=== PATIENT | female | born 1965 | race Caucasian/White ===

== ENCOUNTER 2019-03-07 09:31 | Emergency (ER) | payer BC ==
--- NOTE | 2019-03-07 10:17 | EDM.PDOC ---
ED HPI GENERAL MEDICAL PROBLEM - General Chief Complaint: Respiratory Problem Stated Complaint: TROUBLE BREATHING Time Seen by Provider: 03/07/19 10:00 Source of Information: Reports: Patient, Family History Limitations: Reports: No Limitations - History of Present Illness INITIAL COMMENTS - FREE TEXT/NARRATIVE: Ongoing cough for approximately 1/2-2 weeks patient states that it is a dry, hacking cough seems to get mildly worse in the a.m. symptom occur little bit more short of breath but then goes away since she had same signs and Symptoms Approximately Year Ago Was Diagnosed Bronchitis maybe it's kind of the same she smokes approximately one pack per day 30 years she denies any OTC treatment as of yet she denies any fever questionable chills secondary to has been going through menopause no nausea vomiting no chest pain no dyspnea on exertion no orthopnea no PND no lightheaded dizziness no tachycardia states she has been doing her normal routine with no issues she denies any swelling to the hands of the feet she does not know her family history secondary not raised by her mother or father Onset: Gradual Duration: Week(s): Improves with: Reports: None Worsens with: Reports: None. Denies: Breathing, Immobilization, Medication, Rest Associated Symptoms: Reports: Cough, Shortness of Breath. Denies: Chest Pain, Diaphoresis, Fever/Chills, Loss of Appetite, Nausea/Vomiting, Syncope - Related Data Allergies Allergy/AdvReac Type Severity Reaction Status Date / Time Penicillins Allergy Rash Verified 03/07/19 09:42 Home Meds: Home Meds . [No Known Home Meds] 03/07/19 [History] Past Medical History Respiratory History: Reports: Bronchitis, Recurrent Social & Family History - Tobacco Use Smoking Status *Q: Current Every Day Smoker Years of Tobacco use: 30 Packs/Tins Daily: 0.5 ED ROS GENERAL - Review of Systems Review Of Systems: See Below Constitutional: Reports: Night Sweats. Denies: Fever, Malaise, Weakness, Fatigue, Decreased Appetite, Weight Loss, Weight Gain HEENT: Reports: No Symptoms. Denies: Rhinitis, Sinus Problem, Throat Pain Respiratory: Reports: Shortness of Breath, Other (Shortness of breath along with a cough only lasts for a few seconds) Cardiovascular: Reports: No Symptoms. Denies: Chest Pain, Blood Pressure Problem, Dyspnea on Exertion, Orthopnea, Palpitations, PND, Syncope Endocrine: Reports: No Symptoms. Denies: Fatigue GI/Abdominal: Reports: No Symptoms : Reports: No Symptoms Musculoskeletal: Reports: No Symptoms Skin: Reports: No Symptoms Neurological: Reports: No Symptoms Psychiatric: Reports: No Symptoms Hematologic/Lymphatic: Reports: No Symptoms Immunologic: Reports: No Symptoms ED EXAM, GENERAL - Physical Exam Exam: See Below Exam Limited By: No Limitations General Appearance: Alert, WD/WN, No Apparent Distress Eye Exam: Bilateral Eye: EOMI, PERRL Ears: Normal External Exam, Normal Canal, Hearing Grossly Normal, Normal TMs Nose: Normal Inspection, Normal Mucosa, No Blood. No: Clear Rhinorrhea Throat/Mouth: Normal Inspection, Normal Lips, Normal Teeth, Normal Gums, Normal Oropharynx Neck: Normal Inspection, Supple, Non-Tender, Full Range of Motion Respiratory/Chest: No Respiratory Distress, No Accessory Muscle Use, Chest Non- Tender, Wheezing, Other (Mild EEW in the right upper lobe that seems to clear after third breath). No: Decreased Breath Sounds, Crackles, Rales, Rhonchi Cardiovascular: Normal Peripheral Pulses, Regular Rate, Rhythm, No Edema, No Gallop, No JVD, No Murmur, No Rub. No: JVD, Tachycardia GI/Abdominal: Normal Bowel Sounds, Soft, Non-Tender, No Organomegaly, No Distention Extremities: Normal Inspection, Normal Range of Motion, Non-Tender, No Pedal Edema. No: Pedal Edema Neurological: Alert, Oriented, CN II-XII Intact, Normal Cognition Psychiatric: Normal Affect, Normal Mood Skin Exam: Warm, Dry, Intact, Normal Color Course - Vital Signs Text/Narrative:: Patient vital signs are all stable chest x-ray AP and lateral no noted acute findings patient will be given albuterol inhaler and Zithromax , prednisone 40 mg one by mouth daily 5 days secondary to treatment of bronchitis with a possible history of undiagnosed COPD patient was instructed to return to the emergency room if anything changes or gets worse all primary care provider in the next 2-3 days and to stop smoking Radiological read no acute findings chest x-ray consistent with COPD Last Recorded V/S: Last Vital Signs Temp 36.4 C 03/07/19 09:35 Pulse 92 03/07/19 09:35 Resp 20 03/07/19 09:35 BP 144/88 H 03/07/19 09:35 Pulse Ox 92 L 03/07/19 09:35 Departure - Departure Time of Disposition: 10:25 Disposition: Home, Self-Care 01 Condition: Good Clinical Impression: Cough in adult, Bronchitis - Discharge Information Instructions: Steps to Quit Smoking, [id number], Asthma, Adult, Shortness of Breath, Adult, [id number] Forms: ED Department Discharge Additional Instructions: patient was instructed to return to the emergency room if anything changes or gets worse such as shortness of breath or chest pain fever or chills follow-up with primary care provider in the next 2-3 days and to stop smoking and take all medications as directed - Problem List & Annotations (1) Cough in adult SNOMED Code(s): 48632012 Code(s): R05 - COUGH Status: Acute (2) Bronchitis SNOMED Code(s): 73871409 Code(s): J40 - BRONCHITIS, NOT SPECIFIED ACUTE OR CHRONIC Status: Acute
--- NOTE | 2019-03-07 10:26 | CR ---
[id number] RAD/RAD Chest PA And Lateral EXAM: RAD Chest PA And Lateral INDICATION: WHEEZING. COMPARISON: 2012.. DISCUSSION: Cardiomediastinal silhouette is normal in size and contour. Again seen is bilateral symmetric lung hyperinflation with flattening of the hemidiaphragms. Findings are consistent with air trapping. Differential diagnosis includes reactive airway disease versus chronic obstructive pulmonary disease. Findings are similar to 2012. No pneumonia, effusion, edema, or pneumothorax. IMPRESSION: As above. Zenon Stoll MD 03/07/19 1025 Thank you for allowing us to participate in the care of your patient.
== END 2019-03-07 10:37 | disposition home or self-care (01) ==
LOC: VM.ED 09:31
DX: J40 Bronchitis, not specified as acute or chronic (principal); F17.210 Nicotine dependence, cigarettes, uncomplicated; Z88.0 Allergy status to penicillin
CPT/HCPCS: 71046; 99284-25

== ENCOUNTER 2021-11-21 13:23 | Emergency (ER) | payer BC, OTHER ==
[2021-11-21] MEDS: Ketorolac 30 MG/ML SDV IM ONE (13:50)
== END 2021-11-21 14:36 | disposition home or self-care (01) ==
LOC: VM.ED 13:23
DX: M25.561 Pain in right knee (principal); Z88.0 Allergy status to penicillin; Z72.0 Tobacco use
CPT/HCPCS: 73562-RT; 96372; 99283; J1885